=== PATIENT | male | born 1975 | race Caucasian/White ===

== ENCOUNTER 2023-04-29 11:28 | Outpatient (CLI) | payer OTHER | END 2023-04-29 11:29 | disposition home or self-care (01) | LOC: SCSMRI 11:28 | PROVIDERS: ATTEND Orthopaedic Surgery | DX: S46.012A Strain of muscle(s) and tendon(s) of the rotator cuff of left shoulder, initial encounter (principal); S43.432A Superior glenoid labrum lesion of left shoulder, initial encounter ==